=== PATIENT | female | born 1970 | race Caucasian/White ===

== ENCOUNTER 2018-03-23 11:17 | Emergency (ER) | payer OTHER ==
[~2018-03-23] VITALS: Ht 162.6 cm; Wt 86.2 kg
[~2018-03-23 11:17] MED LIST: ACETAMINOOPHEN-1 TAB PO; CATAFLAM50 MG PO; CIPRO500 MG PO; PROTONIX40 M1 PO; URETRON D/S TAB1 TAB PO
[2018-03-23] MEDS ORDERED: CIPRO500 MG PO (16:03)
== END 2018-03-23 16:20 | disposition home or self-care (01) ==
LOC: ER 11:17
DX: N39.0 Urinary tract infection, site not specified (principal)

== ENCOUNTER 2018-06-08 09:23 | Inpatient (IN) | payer OTHER ==
[~2018-06-08] VITALS: Ht 162.6 cm; Wt 86.2 kg
[2018-06-08] MEDS ORDERED: HYZAAR 50-12.51 EACH (10:36)
[2018-06-13] MEDS ORDERED: LEVAQUIN750 MG PO (09:11)
[2018-06-13] MEDS ORDERED: METRONIDAZOLE500 MG PO (09:12)
[2018-06-13] MEDS ORDERED: PROTONIX40 MG PO (09:12)
[2018-06-13] MEDS ORDERED: INTESTINEX680 M1 PO (09:13)
== END 2018-06-13 11:05 | disposition home or self-care (01) | DRG 392 ==
LOC: ER 09:23 → MEDJ 22:58 → SEC-K 22:58 → MEDI 06-09 11:25 → MEDJ 06-09 12:19
PROC: BU4CZZZ Ultrasonography of Uterus and Ovaries (ICD-10-PCS; principal; 2018-06-08)
PROC: BW21Y0Z Computerized Tomography (CT Scan) of Abdomen and Pelvis using Other Contrast, Unenhanced and Enhanced (ICD-10-PCS; 2018-06-08)
DX: K57.32 Diverticulitis of large intestine without perforation or abscess without bleeding (principal); I10 Essential (primary) hypertension; K44.9 Diaphragmatic hernia without obstruction or gangrene; K52.89 Other specified noninfective gastroenteritis and colitis

== ENCOUNTER 2018-07-10 19:31 | Emergency (ER) | payer OTHER ==
[~2018-07-10] VITALS: Ht 162.6 cm; Wt 86.2 kg
[~2018-07-10 19:31] MED LIST changes: +HYZAAR 50-12.51 EACH; +INTESTINEX680 M1 PO; +LEVAQUIN750 MG PO; +METRONIDAZOLE500 MG PO; +PROTONIX40 MG PO
== END 2018-07-10 23:10 | disposition home or self-care (01) ==
LOC: ER 19:31
DX: K57.90 Diverticulosis of intestine, part unspecified, without perforation or abscess without bleeding (principal)

== ENCOUNTER → 2019-10-23 | Emergency (ER) | payer OTHER ==
[~2019-10-23] VITALS: Ht 162.6 cm; Wt 81.6 kg
[~2019-10-23] MED LIST changes: +COZAAR25 MG
== END | disposition home or self-care (01) ==
LOC: ER 21:20
DX: R10.32 Left lower quadrant pain (principal)

== ENCOUNTER 2019-10-24 12:41 | Emergency (ER) | payer OTHER ==
[~2019-10-24] VITALS: Ht 162.6 cm; Wt 81.6 kg
[~2019-10-24 12:41] MED LIST changes: -COZAAR25 MG
[2019-10-24] MEDS ORDERED: COZAAR25 MG (12:45)
== END 2019-10-24 13:54 | disposition home or self-care (01) ==
LOC: ER
DX: K59.09 Other constipation (principal)

== ENCOUNTER 2023-01-26 19:22 | Emergency (ER) | payer OTHER ==
[~2023-01-26] VITALS: Ht 162.6 cm; Wt 103.4 kg
[~2023-01-26 19:22] MED LIST changes: +COZAAR25 MG
[2023-01-26] MEDS ORDERED: PROTONIX20 MG PO (19:27)
== END 2023-01-26 23:43 | disposition home or self-care (01) ==
LOC: ER 19:22
DX: R10.84 Generalized abdominal pain (principal)

== ENCOUNTER 2025-08-28 11:16 | Inpatient (IN) | payer OTHER ==
[~2025-08-28] VITALS: Ht 162.6 cm; Wt 93.9 kg
[~2025-08-28 11:16] MED LIST changes: +PROTONIX20 MG PO
--- NOTE | 2025-08-28 12:05 | NUR ---
PTE. REFIERE DOLOR DE CATHERINE, TERRELL , ABDOMEN Y ORINA OSCURA.
[2025-08-28] MEDS ORDERED: AMBIEN10 MG PO (12:06)
--- NOTE | 2025-08-28 12:10 | NUR ---
SE ADMINISTRA TYLENOL 1GM PO.
[2025-08-28] MEDS ORDERED: ACETAMINOPHEN 325 MG TABLET PO ONE (12:45)
[2025-08-28] MEDS ORDERED: 0.9 % SODIUM CHLORIDE 1,000 ML IV ONE (12:45)
[2025-08-28] MEDS ORDERED: ORPHENADRINE CITRATE 30 MG/ML AMPUL IV ONE (12:45)
[2025-08-28] MEDS ORDERED: ONDANSETRON HCL 2 MG/ML VIAL IV ONE (12:45)
[2025-08-28] MEDS ORDERED: DEXAMETHASONE SODIUM PHOSP/PF 10 MG/ML VIAL IV ONE (12:45)
[2025-08-28] MEDS ORDERED: FAMOTIDINE/PF 20 MG/2 ML VIAL IV ONE (12:45)
[2025-08-28] MEDS ORDERED: KETOROLAC TROMETHAMINE 30 MG VIAL IU ONE (12:45)
--- NOTE | 2025-08-28 14:05 | NUR ---
SE ORIENTA A PACIENTE SOBRE ORDEN MEDICA LA MISMA REFIERE ENTENDER Y ACEPTA.
[2025-08-28 14:14] LABS: BASO % 0.2 % (0.1-1.2); EOS # 0.00 (0.04-0.54); EOS % 0.0 % (0.7-7.0); LYMPH # 1.15 (1.18-3.74); LYMPH % 6.5 % (19.3-53.1); MEAN PLATELET VOLUME 10.10 fl (9.4-12.4); MONO # 0.66 (0.24-0.82); MONO % 3.7 % (4.7-12.5); NEUT # 15.68 (1.56-6.13); NEUT % 88.8 % (34.0-71.1); RED CELL DISTRIBUTION WIDTH 13.1 % (11.6-14.4)
[2025-08-28 14:36] LABS: ALT/SGPT 728.0 U/L (12-78); AST/SGOT 660.0 U/L (15-37); BILIRUBIN TOTAL 5.31 mg/dL (0.3-1.2); BUN CREA RATIO 15.0 (7.0-25.0); CREATININE SERUM 1.15 mg/dL (0.55-1.02); GFR 49.55; GLOBULINA 3.7 G/DL (2.4-3.5); GLUCOSE FASTING 119.0 mg/dL (65-100); OSMOLALITY SERUM 280.0 MOSM/KG (275-295)
[2025-08-28 15:35] LABS: URINE APPEARANCE Clear; URINE BILIRRUBIN Moderate (NEGATIVE); URINE BLOOD Negative; URINE COLOR Dark Yellow; URINE GLUCOSE Negative (NEGATIVE); URINE KETONE Negative (NEGATIVE); URINE LEUKOCYTE Small; URINE NITRATE Positive; URINE PROTEIN 30 (NEGATIVE); URINE UROBILINOGEN 2.0 E.U./dl
[2025-08-28 15:40] LABS: URINE BACTERIA 1751.8 uL (0.0-1933); URINE EPITHELIAL CELLS 49.0 uL (0.0-38.8); URINE RBC 18.7 uL (0.0-20.8); URINE WBC 57.3 uL (0.0-23.2)
[2025-08-28 15:48] LABS: COVID-19 AG NEGATIVE (NEGATIVE)
[2025-08-28 16:35] LABS: TYPE CELLS SQUAMOUS; URINE CAST 0.14 uL (0.0-1.40)
[2025-08-28] MEDS ORDERED: PIPERACILLIN/TAZOBACTAM SODIUM 3.375 GM VIAL IV ONE (16:45)
[2025-08-28] MEDS ORDERED: ONDANSETRON HCL 4 MG in 0.9 % SODIUM CHLORIDE 50 ML IV PRN (21:30)
[2025-08-28] MEDS ORDERED: ACETAMINOPHEN 500 MG GEL..CAP PO PRN (21:30)
[2025-08-28] MEDS ORDERED: MORPHINE SULFATE 2 MG/ML SYRINGE IV PRN (22:45)
[2025-08-28] MEDS ORDERED: ZOLPIDEM TARTRATE 10 MG TABLET PO SCH (23:15)
[2025-08-29] MEDS ORDERED: PIPERACILLIN/TAZOBACTAM SODIUM 3.375 GM in DEXTROSE 5 % IN WATER 100 ML IV SCH
[2025-08-29 01:38] LABS: BILIRUBIN TOTAL 4.67 mg/dL (0.3-1.2); BILIRUBIN,CONJUGATED 3.37 mg/dL (0.0-0.2)
[2025-08-29 02:05] VITALS: BP 127/79; O2SAT 95
[2025-08-29 06:54] LABS: BASO % 0.1 % (0.1-1.2); EOS # 0.00 (0.04-0.54); EOS % 0.0 % (0.7-7.0); LYMPH # 0.73 (1.18-3.74); LYMPH % 5.4 % (19.3-53.1); MEAN PLATELET VOLUME 10.30 fl (9.4-12.4); MONO # 0.36 (0.24-0.82); MONO % 2.6 % (4.7-12.5); NEUT # 12.42 (1.56-6.13); NEUT % 91.5 % (34.0-71.1); RED CELL DISTRIBUTION WIDTH 12.9 % (11.6-14.4)
[2025-08-29 07:06] LABS: INR 1.25
[2025-08-29 07:09] LABS: ERYTHROCYTE SEDIMENTATION RATE 57 mm/hr (0-30)
[2025-08-29 08:17] VITALS: BP 107/72; O2SAT 96
[2025-08-29] MEDS ORDERED: FAMOTIDINE/PF 20 MG in 0.9 % SODIUM CHLORIDE 8 ML IV PUSH SCH (09:00)
[2025-08-29 16:00] VITALS: BP 165/87; O2SAT 95
[2025-08-29] MEDS ORDERED: RINGERS SOLUTION,LACTATED 1,000 ML IV SCH (16:30)
[2025-08-30 00:30] VITALS: BP 124/83; O2SAT 100
[2025-08-30 06:33] LABS: BASO % 0.6 % (0.1-1.2); EOS # 0.11 (0.04-0.54); EOS % 1.1 % (0.7-7.0); LYMPH # 2.18 (1.18-3.74); LYMPH % 22.4 % (19.3-53.1); MEAN PLATELET VOLUME 10.40 fl (9.4-12.4); MONO # 0.69 (0.24-0.82); MONO % 7.1 % (4.7-12.5); NEUT # 6.65 (1.56-6.13); NEUT % 68.4 % (34.0-71.1); RED CELL DISTRIBUTION WIDTH 12.9 % (11.6-14.4)
[2025-08-30 07:04] LABS: ALT/SGPT 403.0 U/L (12-78); AST/SGOT 125.0 U/L (15-37); BILIRUBIN TOTAL 1.1 mg/dL (0.3-1.2); BUN CREA RATIO 21.0 (7.0-25.0); CREATININE SERUM 0.9 mg/dL (0.55-1.02); GFR 65.75; GLOBULINA 2.7 G/DL (2.4-3.5); GLUCOSE FASTING 99.0 mg/dL (65-100); OSMOLALITY SERUM 285.0 MOSM/KG (275-295)
[2025-08-30 07:55] VITALS: BP 104/69; O2SAT 97
[2025-08-30 16:33] VITALS: BP 126/88; O2SAT 98
[2025-08-30] MEDS ORDERED: KETOROLAC TROMETHAMINE 30 MG VIAL IV PRN (20:30)
[2025-08-30 22:38] VITALS: BP 152/86; O2SAT 95
[2025-08-30 23:51] VITALS: BP 152/88; O2SAT 96
[2025-08-31 08:06] VITALS: BP 128/77; O2SAT 95
[2025-08-31] MEDS ORDERED: LACTOBACILLUS ACIDOPHILUS 1 CAP CAP PO SCH (09:00)
[2025-08-31] MEDS ORDERED: SIMETHICONE 125 MG CAPSULE PO SCH (09:00)
[2025-08-31] MEDS ORDERED: SUCRALFATE 1 G TABLET PO SCH (09:00)
[2025-08-31 23:00] VITALS: BP 140/87; O2SAT 96
[2025-09-01 07:35] LABS: BASO % 0.5 % (0.1-1.2); EOS # 0.34 (0.04-0.54); EOS % 4.3 % (0.7-7.0); LYMPH # 2.90 (1.18-3.74); LYMPH % 36.6 % (19.3-53.1); MEAN PLATELET VOLUME 10.20 fl (9.4-12.4); MONO # 0.75 (0.24-0.82); MONO % 9.5 % (4.7-12.5); NEUT # 3.84 (1.56-6.13); NEUT % 48.3 % (34.0-71.1); RED CELL DISTRIBUTION WIDTH 13.2 % (11.6-14.4)
[2025-09-01 07:40] VITALS: BP 125/81; O2SAT 96
[2025-09-01 07:58] LABS: ALT/SGPT 178.0 U/L (12-78); AST/SGOT 34.0 U/L (15-37); BILIRUBIN TOTAL 0.73 mg/dL (0.3-1.2); BUN CREA RATIO 10.0 (7.0-25.0); CREATININE SERUM 0.62 mg/dL (0.55-1.02); GFR 101.08; GLOBULINA 2.7 G/DL (2.4-3.5); GLUCOSE FASTING 97.0 mg/dL (65-100); OSMOLALITY SERUM 284.0 MOSM/KG (275-295)
[2025-09-01] MEDS ORDERED: TRAM1TAB98 PO (12:32)
[2025-09-01] MEDS ORDERED: AMOX-CLAV 875-1 EAC1 PO (13:54)
== END 2025-09-01 15:40 | disposition home or self-care (01) | DRG 419 ==
LOC: ER 11:17 → SURG 22:33 → SURH 22:33 → SURG 08-29 15:40
PROVIDERS: General Practice; Surgery; ADMIT Internal Medicine; ATTEND Internal Medicine
PROC: BW21YZZ Computerized Tomography (CT Scan) of Abdomen and Pelvis using Other Contrast (ICD-10-PCS; 2025-08-28)
PROC: BT4JZZZ Ultrasonography of Kidneys and Bladder (ICD-10-PCS; 2025-08-28)
PROC: BF37ZZZ Magnetic Resonance Imaging (MRI) of Pancreas (ICD-10-PCS; 2025-08-28)
PROC: BF13YZZ Fluoroscopy of Gallbladder and Bile Ducts using Other Contrast (ICD-10-PCS; 2025-08-30)
PROC: 0FT44ZZ Resection of Gallbladder, Percutaneous Endoscopic Approach (ICD-10-PCS; principal; 2025-08-30 17:00)
DX: K80.10 Calculus of gallbladder with chronic cholecystitis without obstruction (principal); D72.828 Other elevated white blood cell count; I10 Essential (primary) hypertension; R74.01 Elevation of levels of liver transaminase levels